=== PATIENT | female | born 1990 | race Caucasian/White ===

== ENCOUNTER 2018-03-25 01:10 | Inpatient (IN) ==
[2018-03-25] MEDS ORDERED: METHYLERGONOVINE 0.2 MG/ML INJECTION IM PRN (01:25)
[2018-03-25] MEDS ORDERED: MAG-AL + SIM ORAL LIQUID 30ml PO PRN ×2 (01:25→06:47)
[2018-03-25] MEDS ORDERED: ACETAMINOPHEN 500 MG TABLET PO PRN ×2 (01:25→06:47)
[2018-03-25] MEDS ORDERED: CARBOPROST 250 MCG/ML INJECTION IM PRN (01:25)
[2018-03-25] MEDS ORDERED: CALCIUM CARBONATE Chewable 500mg TABLET PO PRN ×2 (01:25→06:47)
[2018-03-25] MEDS ORDERED: D5LR 1,000 ML IV SCH (01:30)
[2018-03-25] MEDS: LR 1,000 ML IV PRN ×2 (01:30→02:32)
[2018-03-25 01:41] VITALS: BMI 24.7
[2018-03-25] MEDS ORDERED: DiphenhydrAMINE 50 MG/ML INJECTION IVP PRN (02:24)
[2018-03-25] MEDS ORDERED: ROPIVACAINE 1% 10MG/ML INJ 200 MG, SUFentanil 50 MCG in NS 100 ML EPI PRN (02:24)
[2018-03-25] MEDS ORDERED: ONDANSETRON 4 MG/2 ML INJECTION IVP PRN ×2 (02:24→23:22)
[2018-03-25] MEDS ORDERED: NALOXONE 0.4 MG/ML INJECTION IVP PRN (02:24)
--- NOTE | 2018-03-25 02:24 | Anesthesia Preoperative Report ---
Anesthesia Epidural/Spinal Rec - Date and Time Date: 03/25/18 Preoperative Diagnosis: Active labor Procedure: Plan: Epidural - Vital Signs Vital Signs: Temperature 98.0 F 03/25/18 01:42 Pulse Rate 80 03/25/18 01:42 Respiratory Rate 20 03/25/18 01:42 Blood Pressure 132/73 03/25/18 01:42 /Para: P:3 - Medictaions & Allergies Inpatient Medications: Current Medications Acetaminophen (Tylenol) 500 - 1,000 mg PO Q4H PRN PRN Reason: Pain Al Hydroxide/Mg Hydroxide (Maalox Plus) 30 ml PO Q3H PRN PRN Reason: Indigestion Calcium Carbonate (Tums) 500 - 1,000 mg PO Q2H PRN PRN Reason: Indigestion Carboprost Tromethamine (Hemabate) 250 mcg IM O PRN PRN Reason: .Downtime Dextrose/Lactated Ringer's (Dextrose 5%-Lactated Ringers) 1,000 mls @ 125 mls/ hr IV .Q8H ANETA Lactated Ringer's (Lactated Ringers) 1,000 mls @ 999 mls/hr IV .Q1H1M PRN Last Admin: 03/25/18 01:30 Dose: 999 mls/hr Methylergonovine Maleate (Methergine) 0.2 mg IM O PRN Misoprostol (Cytotec) 800 mcg IL ONCE PRN Allergies/Adverse Reactions: Allergies Allergy/AdvReac Type Severity Reaction Status Date / Time No Known Allergies Allergy Verified 03/25/18 01:40 - Home Medications Home Medications: Home Medications Medication Instructions Recorded Confirmed Type Vitamin Tab [Valdez 1 tab PO DAILY #30 tab 07/23/17 01/10/18 Rx ] D-Methorphan/PE/Acetaminophen 1 tab PO Q4H PRN 01/10/18 01/10/18 History [Theraflu Multi-Symp Cold Cplt] Ibuprofen 200 mg PO Q4H PRN 01/10/18 01/10/18 History Oseltamivir Cap [Tamiflu] 75 mg PO BID #10 cap 01/10/18 Rx - Medical History Gastrointestional: Reports: Other (possible cholecystitis/pt reports) Neuro/Musculoskeletal: Reports: Depression (occasionally; no meds) Other History: Reports: Now (EDC 04/04/18) - Surgical History Reproductive Surgery/Treatment: DENIES: Section Anesthesia Reactions: None Hx Family Anesthesia Reaction: No History of Motion Sickness: No - Social History Smoking Status: Former smoker Substance Use Type: does not use Alcohol Intake: former Alcohol Intake Frequency: does not drink - Pertinent Findings Lab Data: CBC and BMP 03/25/18 01:32 - Physical Exam Respiratory Exam: lungs clear Cardiovascular Exam: regular rate and rhythm - Airway Assessment Mallampati Score: II TMD: 3 Fingerbreadths Neck Extension: good Overall Assessment: no airway concerns - ASA ASA Score: 2 - Discussion Discussion: Discussed risks/options/alternatives of anesthesia and questions answered. Patient consents. Nursing pain assessment noted. Anesthesia Discussion: spouse Attestation Statement: Prior to the delivery of any anesthetic medication, I examined the patient, developed the plan, obtained the patient's consent and discussed the risk and benefits of the procedure with the patient/guardian.
[2018-03-25] MEDS ORDERED: HYDROCORTISONE 2.5% CREAM 30gm RECTALLY PRN (06:47)
[2018-03-25] MEDS ORDERED: DiphenhydrAMINE 25 MG CAPSULE PO PRN (06:47)
[2018-03-25] MEDS ORDERED: OXYTOCIN DRIP 30 UNIT/500 ML ML IV SCH (06:47)
[2018-03-25] MEDS: HYDROCODONE/APAP 5mg/325mg TABLET PO PRN ×3 (08:06→21:17)
[2018-03-25] MEDS: IBUPROFEN 800 MG TABLET PO PRN ×2 (08:07→17:38)
--- NOTE | 2018-03-25 09:36 | Labor and Delivery Note ---
DATE: 03/25/2018 Ms. Feliz presented in active labor this morning at 5 cm. She received epidural analgesia that unfortunately was not very effective on her left side and was re-blocked subsequently. She had spontaneous rupture of membranes and progressed to complete dilatation. She began to push with excellent effort to complete and +1 presentation. She pushed for three contractions delivering the head in the ROP presentation. Baby was bulb suctioned on the perineum. There was no nuchal cord. With a further push the baby was delivered in total. The baby was then placed on mother's abdomen for care. After just over 2 minutes the cord was soft and flat. It was doubly cut. It was then cut by the baby's father Brian. This is a liveborn female with Apgars of 7/9/9. She weighed 5 pounds 6.9 ounces. Within a few moments the placenta delivered spontaneously intact. It had a normal configuration and normal-appearing three- vessel cord. It did have less scalloping than anticipated. It was sent to Pathology for review due to the baby's decreased growth. The perineum was intact. There were no lacerations. Total blood loss was approximately 200 cc. At the time of this dictation mother and baby are doing well. [facility], [place]
[2018-03-25] MEDS ORDERED: METHYLERGONOVINE 0.2 MG TABLET PO ONE ×2 (15:57→16:30)
[2018-03-25] MEDS ORDERED: METHYLERGONOVINE 0.2 MG TABLET PO SCH (20:00)
[2018-03-25 20:36] VITALS: RESP 16
[2018-03-25] MEDS ORDERED: ONDANSETRON 4 MG TABLET PO PRN (23:28)
[2018-03-26] MEDS: METHYLERGONOVINE 0.2 MG TABLET PO SCH ×2 (00:02→04:00)
[2018-03-26] MEDS: IBUPROFEN 800 MG TABLET PO PRN (02:07)
[2018-03-26] MEDS: HYDROCODONE/APAP 5mg/325mg TABLET PO PRN ×2 (02:07→07:00)
[2018-03-26] MEDS ORDERED: METHYLERGONOVINE 0.2 MG TABLET PO ONE (06:45)
[2018-03-26] MEDS ORDERED: MedroxyPROGESTERone 150mg/ml INJECTION IM ONE (08:18)
--- NOTE | 2018-03-26 08:18 | OB/GYN Progress Note ---
OB-PP Progress Note - General PPD1 Maternal Group B Strep: Negative Maternal blood type: O+ Maternal Rubella Status: Immune - Subjective Date: 03/26/18 Lochia: Minimal (Much better. s/p methergine PO x4 doses.) Pain: controlled Voiding: voiding - Objective Vital Signs: Last Vital Signs Temp 98.6 F 03/26/18 00:49 Pulse 60 03/26/18 02:02 Resp 16 03/26/18 00:49 BP 129/83 03/26/18 07:00 Pulse Ox 99 03/25/18 19:40 General: alert and oriented Abdomen: fundus firm, non-tender Extremities: non-tender Laboratory: Laboratory Results - last 24 hr 03/25/18 03/25/18 16:06 22:09 WBC 14.9 H 15.8 H RBC 3.13 L 3.06 L Hgb 10.8 L D 10.6 L Hct 31.1 L D 30.4 L MCV 99.4 99.3 MCH 34.5 H 34.6 H MCHC 34.7 34.9 RDW Std Deviation 44.7 44.5 Plt Count 225 207 MPV 10.4 10.3 - Assessment Assessment: - Plan Plan: routine care, discharge home, continue PNV She's scheduled for a TL & cholecystectomy in 6 weeks. She would like a Depo Provera injection to cover her until then.
--- NOTE | 2018-03-26 08:52 | Anesthesia Postoperative Note ---
- Date and Time Date: 03/26/18 Time: 08:52 - Status Patient Participated in Evaluation: Patient Participated in Person Vital Signs: Temperature 98.6 F 03/26/18 00:49 Pulse Rate 60 03/26/18 02:02 Respiratory Rate 16 03/26/18 00:49 Blood Pressure 129/83 03/26/18 07:00 Pulse Oximetry 99 03/25/18 19:40 Respiratory Function: Airway Patent Cardiovascular Function: Regular Pulse EKG: Sinus Rhythm Mental Status: Alert and Oriented Pain Intensity: 3 (Back pain) Hydration: Taking PO Fluids Complications During Recover: None Apparent - Follow-Up Instructions Instructions: Per Surgeon
[2018-03-26] MEDS: DOCUSATE CALCIUM 240 MG CAPSULE PO SCH ×2 (09:16→10:15)
[2018-03-26 09:25] VITALS: BP 130/75; PULSE 58; TEMP 98; O2SAT 97
== END 2018-03-26 13:00 | disposition home or self-care (01) | DRG 775 ==
LOC: MC 01:10 → OBOBS 01:16 → MC 01:18
PROVIDERS: ADMIT Obstetrics & Gynecology; ATTEND Obstetrics & Gynecology